=== PATIENT | male | born 1990 | race Caucasian/White ===

== ENCOUNTER 2017-10-03 20:43 | Emergency (ER) | payer SELFPAY ==
[~2017-10-03] VITALS: Ht 172.7 cm; Wt 69.1 kg
[2017-10-03 20:47] VITALS: BP 135/83
--- NOTE | 2017-10-03 20:50 | NUR ---
pt returned to lobby
--- NOTE | 2017-10-03 20:52 | NUR ---
PT TAKEN TO BED 2
--- NOTE | 2017-10-03 20:55 | NUR ---
27/M CAME IN ED, C/O 09/28 SHARP R HAND PAIN, NONRADIATING, X2 DAYS S/P FALL WHILE PLAYING WITH FAMILY. R HAND SWELLING NOTED, DECREASED ROM DUE TO PAIN, SKIN PINK WARM DRY AND INTACT, NO REDNESS NOTED. PT DENIES N/V/D; AAOX4, PERRL, WITH EVEN AND STEADY GAIT; LUNGS CLEAR BL, BREATHING UNLABORED; HR EVEN AND REGULAR, BL PERIPHERAL PULSES PRESENT; BS ACTIVE X4, NO TENDERNESS TO PALPATION. PT DENIES ANY FEVER, CP, SOB, OR COUGH AT THIS TIME; VSS; PATIENT POSITIONED FOR COMFORT; HOB ELEVATED; BEDRAILS UP X2; BED DOWN. ER MD DR RONDON MADE AWARE.
[2017-10-03] MEDS ORDERED: IBUPROFEN 600 MG TAB PO ONE (21:45)
[2017-10-03 22:17] VITALS: BP 117/72
--- NOTE | 2017-10-03 22:17 | NUR ---
Patient discharged with v/s stable. Written and verbal after care instructions given and explained. Patient alert, oriented and verbalized understanding of instructions. Ambulatory with steady gait. All questions addressed prior to discharge. ID band removed. Patient advised to follow up with PMD. Rx of IBUPROFEN 600MG given. Patient educated on indication of medication including possible reaction and side effects. Opportunity to ask questions provided and answered.
== END 2017-10-03 22:17 | disposition home or self-care (01) ==
LOC: MED 20:43
DX: S62.326A Displaced fracture of shaft of fifth metacarpal bone, right hand, initial encounter for closed fracture (principal); W18.39XA Other fall on same level, initial encounter; Y93.89 Activity, other specified; Y92.89 Other specified places as the place of occurrence of the external cause; Y99.8 Other external cause status
CPT/HCPCS: 29125; 73130; 99284; Q0092